=== PATIENT | female | born 1985 | race Caucasian/White ===

== ENCOUNTER 2017-03-27 18:00 | Emergency (ER) | payer BC ==
[2017-03-27 18:09] VITALS: BP 115/79
--- NOTE | 2017-03-27 19:12 | UC ---
Paul Salazar Benjamin, scribed for Jeremias Lou MD on 03/27/17 at 1856 . - HPI Summary HPI Summary: This is a 12-week 31yo female c/o feeling hot and flushed on her face today. Pt noticed the symptoms today around 12:45pm. Pt reports having pins and needles feeling in her body, and fast heart rate as well. Colleagues at work also said that pt felt hot. This is her first and pt came into UC to get things checked out just in case. Pt has an ONGYN appointment next week. Pt denies any vaginal discharge, bleeding, or any pain anywhere. - History of Current Complaint Chief Complaint: UCGeneralIllness Stated Complaint: FLUSHED,HIGH PULSE RATE,12 WEEKS PREG Hx Obtained From: Patient Onset/Duration: Started Hours Ago - today around 12:45pm, Resolved Timing: Intermittent Severity: Mild Current Severity: Mild Location of Pain: None Character: None Aggravating Factors: Nothing Alleviating Factors: Nothing Associated Signs and Symptoms: Positive: Other: - racing heart rate. Negative: Genital Swelling or Blisters, Vaginal Bleeding or Discharge - Assessment Hx Now: Yes - Additional Pertinent History Primary Care Physician: [id number] - Allergies/Home Medications Allergies/Adverse Reactions: Allergies Allergy/AdvReac Type Severity Reaction Status Date / Time No Known Allergies Allergy Verified 03/27/17 18:02 PMH/Surg Hx/FS Hx/Imm Hx Endocrine/Hematology History: Denies: Hx Anticoagulant Therapy, Hx Diabetes, Hx Thyroid Disease Cardiovascular History: Denies: Hx Congestive Heart Failure, Hx Deep Vein Thrombosis, Hx Hypertension , Hx Myocardial Infarction, Hx Pacemaker/ICD Respiratory History: Denies: Hx Asthma, Hx Chronic Obstructive Pulmonary Disease (COPD), Hx Lung Cancer, Hx Pneumonia, Hx Pulmonary Embolism GI History: Denies: Hx Gall Bladder Disease, Hx Gastrointestinal Bleed, Hx Ulcer, Hx Urosepsis History: Denies: Hx Kidney Stones, Hx Renal Disease Neurological History: Reports: Hx Migraine - "every now and then." Denies: Hx Dementia, Hx Seizures, Hx Transient Ischemic Attacks (TIA) Psychiatric History: Denies: Hx Anxiety, Hx Depression, Hx Schizophrenia, Hx Bipolar Disorder - Surgical History Surgery Procedure, Year, and Place: IUI Infectious Disease History: No Infectious Disease History: Denies: Hx Clostridium Difficile, Hx Hepatitis, Hx Human Immunodeficiency Virus (HIV), Hx of Known/Suspected MRSA, Hx Shingles, Hx Tuberculosis, Hx Known/ Suspected VRE, Hx Known/Suspected VRSA, History Other Infectious Disease, Traveled Outside the [place] in Last 30 Days - Family History Known Family History: Positive: Hypertension Negative: Cardiac Disease - Social History Occupation: Employed Full-time Lives: With Family Alcohol Use: None Substance Use Type: Reports: None Smoking Status (MU): Never Smoked Tobacco Review of Systems Constitutional: Chills, Other - hot flushes Skin: Negative Eyes: Negative ENT: Negative Respiratory: Negative Cardiovascular: Negative Gastrointestinal: Negative Genitourinary: Other - 12 week Motor: Negative Neurovascular: Negative Musculoskeletal: Negative - no leg swelling Neurological: Negative Psychological: Negative All Other Systems Reviewed And Are Negative: Yes Physical Exam - Physical Exam Triage Information Reviewed: Yes Vital Signs Reviewed: Yes Appearance: Positive: Well-Appearing, No Pain Distress, Well-Nourished Skin: Positive: Warm, Skin Color Reflects Adequate Perfusion, Dry Head/Face: Positive: Normal Head/Face Inspection Eyes: Positive: EOMI, FREDI ENT: Positive: Normal ENT inspection, Hearing grossly normal Neck: Positive: Supple, Nontender Respiratory/Lung Sounds: Positive: Clear to Auscultation, Breath Sounds Present Cardiovascular: Positive: RRR, Pulses are Symmetrical in both Upper and Lower Extremities Abdomen Description: Positive: Nontender, Soft Bowel Sounds: Positive: Present Musculoskeletal: Positive: Strength/ROM Intact Neurological: Positive: Sensory/Motor Intact, Alert, Oriented to Person Place, Time Psychiatric: Positive: Affect/Mood Appropriate Diagnostics - Laboratory Diagnostic Studies Completed/Ordered: POC Urine - trace blood, otherwise negative urine. Course/Dx - Course Course Of Treatment: Reviewed pts medication and allergy lists. Blood pressure noted. HR AND BP NL IN CLINIC. NO PAIN, NO VAG DISCHARGE, NO ABD PAIN. NAD IN CLINIC. WILL F/U WITH OBGYN/PMD, WILL GET RECHECKED IF WORSE. - Diagnoses Provider Diagnoses: Palpitations, Skin flushed, Early stage of Discharge - Discharge Plan Condition: Stable Disposition: HOME Patient Education Materials: Palpitations (ED) Referrals: Madhavi Chowdhury MD [Primary Care Provider] - Additional Instructions: FOLLOW UP WITH YOUR DOCTOR. GET RECHECKED FOR ANY WORSENING OF YOUR CONDITION OR QUESTIONS OR CONCERNS. The documentation as recorded by the Paul connell Benjamin accurately reflects the service I personally performed and the decisions made by me, Jeremias Lou MD.
== END 2017-03-27 19:00 | disposition home or self-care (01) ==
LOC: UCEAST 18:00
DX: O26.891 Other specified pregnancy related conditions, first trimester (principal); R00.2 Palpitations; R23.2 Flushing; Z3A.12 12 weeks gestation of pregnancy; G43.909 Migraine, unspecified, not intractable, without status migrainosus
CPT/HCPCS: 81003; 99211; G0463

== ENCOUNTER 2017-09-08 20:53 | Emergency (ER) | payer BC ==
[2017-09-08] MEDS ORDERED: Ondansetron INJ* 2 MG/ML VIAL IV ONE ×2 (21:11→21:53)
[2017-09-08] MEDS ORDERED: NS 0.9% 1000 ML* 1,000 ML IV ONE (21:11)
--- NOTE | 2017-09-08 21:11 | ED ---
Abdominal Pain/Female - HPI Summary HPI Summary: 32 female presents to ED with complaints of right lower abdominal and right flank pain that began suddenly around 5 pm today. Patient is 36 weeks . Spoke with her OB research microbiologist who stated she should go to ER to rule out appendicitis. Patient states pain has worsened over the past few hours. Has also had 2 episodes of vomiting. Denies fever. Denies urinary and genitalia complaints. States pain was dull however it sharp. Radiates into right back. Admits to nausea. No PMHx and no other complaints/injuries. Denies vaginal bleeding/discharge. Has never had pain like this in the past. Normal bowel movements. Denies blood. Has been a normal since without complication. - History of Current Complaint Hx Obtained From: Patient Hx Last Menstrual Period: 03/20/16 ?: Yes Onset/Duration: Sudden Onset, Lasting Hours, Still Present, Worse Since Timing: Constant Severity Initially: Moderate Severity Currently: Severe Pain Intensity: 10 Pain Scale Used: 0-10 Numeric Location: Discrete At: RLQ, Flank Radiates: Yes Radiates to: Flank - right Character: Sharp, Dull Aggravating Factor(s): Movement Alleviating Factor(s): Nothing Associated Signs and Symptoms: Positive: Nausea, Vomiting - x2. Negative: Constipation, Blood in Stool, Urinary Symptoms, Decreased Appetite, Vaginal Bleeding, Vaginal Discharge <Argelia Locke - Last Filed: 09/09/17 02:18> <Anibal Carroll - Last Filed: 09/09/17 05:31> - History of Current Complaint Chief Complaint: EDAbdPain Stated Complaint: 36 WEEKS PREG/BACK PAIN Time Seen by Provider: 09/08/17 21:10 Allergies/Adverse Reactions: Allergies Allergy/AdvReac Type Severity Reaction Status Date / Time No Known Allergies Allergy Verified 09/08/17 21:07 PMH/Surg Hx/FS Hx/Imm Hx Endocrine/Hematology History: Denies: Hx Anticoagulant Therapy, Hx Diabetes, Hx Thyroid Disease Cardiovascular History: Denies: Hx Congestive Heart Failure, Hx Deep Vein Thrombosis, Hx Hypertension , Hx Myocardial Infarction, Hx Pacemaker/ICD Respiratory History: Denies: Hx Asthma, Hx Chronic Obstructive Pulmonary Disease (COPD), Hx Lung Cancer, Hx Pneumonia, Hx Pulmonary Embolism GI History: Denies: Hx Gall Bladder Disease, Hx Gastrointestinal Bleed, Hx Ulcer, Hx Urosepsis History: Denies: Hx Kidney Stones, Hx Renal Disease Neurological History: Reports: Hx Migraine - "every now and then." Denies: Hx Dementia, Hx Seizures, Hx Transient Ischemic Attacks (TIA) Psychiatric History: Denies: Hx Anxiety, Hx Depression, Hx Schizophrenia, Hx Bipolar Disorder - Surgical History Surgery Procedure, Year, and Place: IUI - Immunization History Immunizations Up to Date: Yes Infectious Disease History: No Infectious Disease History: Denies: Hx Clostridium Difficile, Hx Hepatitis, Hx Human Immunodeficiency Virus (HIV), Hx of Known/Suspected MRSA, Hx Shingles, Hx Tuberculosis, Hx Known/ Suspected VRE, Hx Known/Suspected VRSA, History Other Infectious Disease, Traveled Outside the [place] in Last 30 Days - Family History Known Family History: Positive: Hypertension Negative: Cardiac Disease - Social History Alcohol Use: None Substance Use Type: Reports: None Smoking Status (MU): Never Smoked Tobacco <Argelia Locke - Last Filed: 09/09/17 02:18> Review of Systems Constitutional: Negative Cardiovascular: Negative Respiratory: Negative Positive: Abdominal Pain, Vomiting Neurological: Negative All Other Systems Reviewed And Are Negative: Yes <Argelia Locke - Last Filed: 09/09/17 02:18> Physical Exam Triage Information Reviewed: Yes Vital Signs On Initial Exam: Initial Vitals Temp Pulse Resp BP Pulse Ox 99.3 F 118 20 145/99 100 09/08/17 21:00 09/08/17 21:00 09/08/17 21:00 09/08/17 21:00 09/08/17 21:00 tachycardia noted, patient upset/anxious/in pain Vital Signs Reviewed: Yes Appearance: Positive: Well-Appearing, Well-Nourished, Pain Distress - moderate to severe Skin: Positive: Warm, Skin Color Reflects Adequate Perfusion, Dry. Negative: Cold, Numb, Cyanosis @, Pale, Erythema @ Head/Face: Positive: Normal Head/Face Inspection Eyes: Positive: Conjunctiva Clear ENT: Positive: Hearing grossly normal, Pharynx normal Neck: Positive: Supple, Nontender Respiratory/Lung Sounds: Positive: Clear to Auscultation, Breath Sounds Present. Negative: Rales, Rhonchi, Wheezes Cardiovascular: Positive: Normal, RRR, Pulses are Symmetrical in both Upper and Lower Extremities. Negative: Murmur, Rub Abdomen Description: Positive: No Organomegaly, Soft, CVA Tenderness (R), Guarding, McBurney's Point Tenderness, Other: - diffuse tenderness, worse at RLQ R flank, exam limited due to . Negative: CVA Tenderness (L), Distended, Peritoneal Signs Bowel Sounds: Positive: Present Musculoskeletal: Positive: Normal, Strength/ROM Intact Neurological: Positive: Normal, Sensory/Motor Intact, Alert, Oriented to Person Place, Time, CN Intact II-III <Argelia Locke - Last Filed: 09/09/17 02:18> Vital Signs On Initial Exam: Initial Vitals Temp Pulse Resp BP Pulse Ox 37.4 C 118 20 145/99 100 09/08/17 21:00 09/08/17 21:00 09/08/17 21:00 09/08/17 21:00 09/08/17 21:00 <Anibal Carroll - Last Filed: 09/09/17 05:31> Diagnostics - Vital Signs Vital Signs Temp Pulse Resp BP Pulse Ox 09/08/17 21:00 99.3 F 118 20 145/99 100 - Laboratory Result Diagrams: 09/08/17 21:53 09/08/17 21:53 Lab Statement: Any lab studies that have been ordered have been reviewed, and results considered in the medical decision making process. - Ultrasound No standard instances Ultrasound Interpretation: No Acute Changes - normal right and left overy with positive doppler blood flow. no acute findings Ultrasound Interpretation Completed By: Radiologist <Argelia Locke - Last Filed: 09/09/17 02:18> - Vital Signs Vital Signs Temp Pulse Resp BP Pulse Ox 09/09/17 03:01 37.1 C 88 16 105/65 98 09/09/17 02:00 88 105/65 97 09/09/17 01:30 90 98/47 97 09/09/17 01:11 78 97 09/09/17 01:09 103/57 09/08/17 23:30 79 119/53 97 09/08/17 23:08 77 97 09/08/17 23:07 118/65 09/08/17 22:30 86 115/77 98 09/08/17 22:17 18 09/08/17 22:00 86 121/79 99 02/20/18 21:53 88 98 09/08/17 21:30 102/60 09/08/17 21:18 136/87 09/08/17 21:00 37.4 C 118 20 145/99 100 - Laboratory Lab Results: Lab Results 09/08/17 09/08/17 09/08/17 Range/Units 21:53 21:53 21:53 WBC 14.8 H (3.5-10.8) 10^3/ul RBC 4.38 (4.0-5.4) 10^6/ul Hgb 13.4 (12.0-16.0) g/dl Hct 40 (35-47) % MCV 91 (80-97) fL MCH 31 (27-31) pg MCHC 34 (31-36) g/dl RDW 14 (10.5-15) % Plt Count 253 (150-450) 10^3/ul MPV 9 (7.4-10.4) um3 Neut % (Auto) 75.7 (38-83) % Lymph % (Auto) 15.8 L (25-47) % Caroline % (Auto) 7.4 (1-9) % Eos % (Auto) 0.8 (0-6) % Baso % (Auto) 0.3 (0-2) % Absolute Neuts (auto) 11.2 H (1.5-7.7) 10^3/ul Absolute Lymphs (auto) 2.3 (1.0-4.8) 10^3/ul Absolute Monos (auto) 1.1 H (0-0.8) 10^3/ul Absolute Eos (auto) 0.1 (0-0.6) 10^3/ul Absolute Basos (auto) 0 (0-0.2) 10^3/ul Absolute Nucleated RBC 0 10^3/ul Nucleated RBC % 0 Sodium 134 (133-145) mmol/L Potassium 3.8 (3.5-5.0) mmol/L Chloride 106 (101-111) mmol/L Carbon Dioxide 20 L (22-32) mmol/L Anion Gap 8 (2-11) mmol/L BUN 8 (6-24) mg/dL Creatinine 0.61 (0.51-0.95) mg/dL Est GFR ( Amer) 144.4 (>60) Est GFR (Non-Af Amer) 112.3 (>60) BUN/Creatinine Ratio 13.1 (8-20) Glucose 84 (70-100) mg/dL Lactic Acid 1.0 (0.5-2.0) mmol/L Calcium 9.5 (8.6-10.3) mg/dL Total Bilirubin 0.20 (0.2-1.0) mg/dL AST 17 (13-39) U/L ALT 12 (7-52) U/L Alkaline Phosphatase 131 H (34-104) U/L C-Reactive Protein 8.47 H (< 5.00) mg/L Total Protein 6.5 (6.4-8.9) g/dL Albumin 3.3 (3.2-5.2) g/dL Globulin 3.2 (2-4) g/dL Albumin/Globulin Ratio 1.0 (1-3) Lipase 26 (11.0-82.0) U/L Urine Color Urine Appearance Urine pH (5-9) Ur Specific [place] (1.010-1.030) Urine Protein (Negative) Urine Ketones (Negative) Urine Blood (Negative) Urine Nitrate (Negative) Urine Bilirubin (Negative) Urine Urobilinogen (Negative) Ur Leukocyte Esterase (Negative) Urine Glucose (Negative) 09/08/17 Range/Units 23:07 WBC (3.5-10.8) 10^3/ul RBC (4.0-5.4) 10^6/ul Hgb (12.0-16.0) g/dl Hct (35-47) % MCV (80-97) fL MCH (27-31) pg MCHC (31-36) g/dl RDW (10.5-15) % Plt Count (150-450) 10^3/ul MPV (7.4-10.4) um3 Neut % (Auto) (38-83) % Lymph % (Auto) (25-47) % Caroline % (Auto) (1-9) % Eos % (Auto) (0-6) % Baso % (Auto) (0-2) % Absolute Neuts (auto) (1.5-7.7) 10^3/ul Absolute Lymphs (auto) (1.0-4.8) 10^3/ul Absolute Monos (auto) (0-0.8) 10^3/ul Absolute Eos (auto) (0-0.6) 10^3/ul Absolute Basos (auto) (0-0.2) 10^3/ul Absolute Nucleated RBC 10^3/ul Nucleated RBC % Sodium (133-145) mmol/L Potassium (3.5-5.0) mmol/L Chloride (101-111) mmol/L Carbon Dioxide (22-32) mmol/L Anion Gap (2-11) mmol/L BUN (6-24) mg/dL Creatinine (0.51-0.95) mg/dL Est GFR ( Amer) (>60) Est GFR (Non-Af Amer) (>60) BUN/Creatinine Ratio (8-20) Glucose (70-100) mg/dL Lactic Acid (0.5-2.0) mmol/L Calcium (8.6-10.3) mg/dL Total Bilirubin (0.2-1.0) mg/dL AST (13-39) U/L ALT (7-52) U/L Alkaline Phosphatase (34-104) U/L C-Reactive Protein (< 5.00) mg/L Total Protein (6.4-8.9) g/dL Albumin (3.2-5.2) g/dL Globulin (2-4) g/dL Albumin/Globulin Ratio (1-3) Lipase (11.0-82.0) U/L Urine Color Yellow Urine Appearance Cloudy Urine pH 6.0 (5-9) Ur Specific [place] 1.011 (1.010-1.030) Urine Protein Negative (Negative) Urine Ketones 1+ H (Negative) Urine Blood Negative (Negative) Urine Nitrate Negative (Negative) Urine Bilirubin Negative (Negative) Urine Urobilinogen Negative (Negative) Ur Leukocyte Esterase Negative (Negative) Urine Glucose Negative (Negative) Result Diagrams: 09/08/17 21:53 09/08/17 21:53 Lab Statement: Any lab studies that have been ordered have been reviewed, and results considered in the medical decision making process. <Anibal Carroll - Last Filed: 09/09/17 05:31> Abdominal Pain Fem Course/Dx - Course Course Of Treatment: given morphine and zofran, along with fluids, had relief. labs obtained and slight elevation of WBC however appeared insignificant. did have elevated CRP at 8. rest of labs normal. pelvic US obtained and negative for any acute ovarian findings. OB nurse evaluated patient and baby for contractions and this did not appear to be labor or contractions in nature, cleared by OB. MRI was obtained to r/o appey versus kidney stone. Urinalysis obtained and unremarkable and without blood. No PMHx and no risk factors. Normal PE otherwise. Normal vitals. Dr Carroll also evalauted patient and agrees. MRI was negative. Appears to be having abdominal pain in . No concern for active labor. Pain susbsided throughout visit and at discharge. Possible gas pain versus position//lianne pickering. No other concerns. Follow up with OB. Aware of worsening signs and symptoms to watch out for. Tylenol and fluids at home. Patient agrees and understands plan. - Diagnoses Differential Diagnosis: Positive: Appendicitis, Constipation, Diverticulitis, Renal Colic, Other - renal calculi - Provider Notifications Discussed Care Of Patient With: Dr Carroll - Critical Care Time Critical Care Time: 30-74 min <Argelia Locke - Last Filed: 09/09/17 02:18> - Course Course Of Treatment: I supervised the PA AND performed a hx and physical exam on this pt. Hx: 36wk preg, R sided abd pain today. Severe. PE: uncomfortable. Diffuse R sided and epigastric pain, gravid abd. On toco monitoring. Plan: Labor ruled out. MRI R/O Appy/stone. MRI neg. Pain relieved. D/C with OB f/u. - Critical Care Time Critical Care Time: 30-74 min - exclusive of separtely billable procedures <Anibal Carroll - Last Filed: 09/09/17 05:31> - Diagnoses Provider Diagnoses: Abdominal pain during intrauterine Discharge <Argelia Locke - Last Filed: 09/09/17 02:18> <Anibal Carroll - Last Filed: 09/09/17 05:31> - Discharge Plan Condition: Stable Disposition: HOME Patient Education Materials: Abdominal Pain in (ED) Referrals: Madhavi Chowdhury MD [Primary Care Provider] - Additional Instructions: Please follow up with PCP and OBGYN. Any new or worsening symptoms please seek medical attention. High fiber diet, increase fluids. Tylenol for discomfort as needed. Addendum entered and electronically signed by Argelia Locke PA 09/09/17 02: 20: ED Addendum Addendum: MRI results: normal liver, gallbladder, spleen, pancreas, adrenal glands and kidneys. no bowel inflammation or obstruction. gravid uterus is noted with the fetus in cephalic presentation no evidence of abruption or previa. no adrenal masses. appendix is noted measuring 6 mm in diameter which is normal.
[2017-09-08] MEDS ORDERED: Morphine INJ* 2 MG/ML 1 ML CARPUJECT IV ONE (21:53)
[2017-09-08 22:10] LABS: ABS Basophils 0 10^3/ul (0-0.2); ABS Eosinophils 0.1 10^3/ul (0-0.6); ABS Lymphocytes 2.3 10^3/ul (1.0-4.8); ABS Monocytes 1.1 10^3/ul (0-0.8); ABS Neutrophils 11.2 10^3/ul (1.5-7.7); ABS Nucleated RBC 0 10^3/ul; Eosinophil % 0.8 % (0-6); Hematocrit 40 % (35-47); Hemoglobin 13.4 g/dl (12.0-16.0); Lymphocyte % 15.8 % (25-47); Mean Corpuscular HGB Conc 34 g/dl (31-36); Mean Corpuscular Hemoglobin 31 pg (27-31); Mean Corpuscular Volume 91 fL (80-97); Mean Platelet Volume 9 um3 (7.4-10.4); Nucleated Red Blood Cells % 0; Platelet Count 253 10^3/ul (150-450); Red Blood Count 4.38 10^6/ul (4.0-5.4); Red Cell Distribution Width 14 % (10.5-15); White Blood Count 14.8 10^3/ul (3.5-10.8)
[2017-09-08 22:20] LABS: EGFR Non-African American 112.3 (>60)
[2017-09-08 23:17] LABS: Urine Appearance Cloudy; Urine Blood Negative (Negative); Urine Color Yellow; Urine Ketones 1+ (Negative); Urine Protein Negative (Negative); Urine Specific Gravity 1.011 (1.010-1.030); Urine Urobilinogen Negative (Negative)
[2017-09-09] MEDS ORDERED: Acetaminophen TAB* 325 MG PO ONE (01:42)
[2017-09-09 02:24] VITALS: BP 105/65
--- NOTE | 2017-09-09 07:42 | RAD ---
INDICATION: Right pelvic pain in a 36 week female COMPARISON: None. TECHNIQUE: Real-time transabdominal ultrasound examination of the ovaries only including grayscale and Doppler color flow imaging. FINDINGS: According to the doctor's requisition only the ovaries were visualized. Ovaries: The right and left ovary measure 4.7 x 3.9 x 4.1 cm and 4.1 x 2.3 x 2.4 cm, respectively. Normal arterial and venous waveforms are identified. Appearance is within normal limits for the patient's age. There is no free fluid in the cul-de-sac. IMPRESSION: Normal transabdominal ultrasound examination of the bilateral ovaries.
--- NOTE | 2017-09-09 09:17 | RAD ---
Indication: 36-week-old with right lower quadrant pain. Image Sequences: Axial T1, T2, T2 fat sat, coronal T1, T2 fat sat, and sagittal T2 weighted images were obtained. Thin section axial images utilizing T1 and T2-weighted images were obtained in the pelvis. Lung bases demonstrate no pleural fluid, nodules or masses. The liver where visualized is grossly unremarkable. Spleen is normal in size. Gallbladder is unremarkable. Pancreas demonstrates no mass or pancreatic duct dilatation. No adrenal lesions are noted. The kidneys demonstrate no hydronephrosis. No evidence of abnormal fluid collections are noted. Appendix is likely normal. There is a gravid uterus. The fetus is in cephalic presentation. IMPRESSION: No definite evidence of appendicitis is noted.
== END 2017-09-09 02:30 | disposition home or self-care (01) ==
LOC: ED 20:53
DX: O26.893 Other specified pregnancy related conditions, third trimester (principal); R10.31 Right lower quadrant pain; Z3A.36 36 weeks gestation of pregnancy
CPT/HCPCS: 36415; 74181; 76856; 80053; 81003; 83605; 83690; 85025; 86140; 87040; 96361; 96365; 96375; 99284; A9270-GY; J2270; J2405

== ENCOUNTER 2017-10-14 07:46 | Inpatient (IN) | payer BC ==
[2017-10-14] MEDS ORDERED: Dinoprostone* 10 MG VAG.SUPP VAGINAL ONE (08:42)
--- NOTE | 2017-10-14 09:06 | PN ---
L&D Outpatient: Visit - Reproductive Information Estimated Due Date: 10/07/17 Gestational Age: 41 Weeks and 0 Days : 1 - Reason for Visit Visit Reason: cervical ripening - Antepartal Records Antepartal Record: Reviewed, Complicated by: - Sequential Screen positive for Down's, but NIPT normal - Patient History Patient History Significant: Yes Patient History Significant For: IVF L&D Outpatient: ROS - Review of Systems Constitutional: Comfortable CV Complaint: No Respiratory: Shortness of Breath: No Gastrointestinal: No Nausea/Vomiting Genitourinary: No Leaking Fluid Musculoskeletal: No Complaint Movement: Normal L&D Outpatient: Exam Vitals - Most Recent: 118/81 99.0-95-18 - Cervical Exam Cervical Exam: posterior, not reached, thick, vtx high - Abdominal Exam Abdomen Exam: Fundal Height Consistent with Dates - Membranes Membrane Status: Intact - Ultrasound/Biophysical Profile Ultrasound Status: Not Done L&D Outpatient: EFM - External Monitor Findings Baseline Heart Rate: 135 External Monitor Findings: Accelerations Present, Variability Moderate External Monitor Findings Comment: category 1 L&D Outpatient: Asses/Plan Assessment: 41 wk , unripe cervix, for ripening Cervidil placed 1403 Plan: will monitor according to protocol Reevaluate in 12 hrs or if s/s labor
--- NOTE | 2017-10-14 17:13 | PN ---
Progress Note - Progress Note Date of Service: 10/14/17 Note: pt with mild irreg contractions, then woke up from nap approx 1500 with stronger contractions. Uncomfortable but able to talk through contractions FHTs: remain category 1, with mod variability, accels, baseline 125 Cervix: still very posterior, unable to reach, but softer. Pt difficult to examine due to discomfort Offered to remove Cervidil but pt OK with leaving in. May use tub if desired. Will continue to observe.
--- NOTE | 2017-10-14 19:24 | HP ---
General Information - General Information Maternal Age: 32 Grav: 1 Para: 0 SAB: 0 IEA: 0 Estimated Due Date: 10/07/17 Gestational Age in Weeks and Days: 41 Weeks and 0 Days Maternal Blood Type and Rh: A Positive - Results this Serology/RPR Result: Non-Reactive Rubella Result: Immune HBsAg Result: Negative HIV Result: Negative GBS Culture Result: Positive Past Medical History Pertinent Past Medical History: See Records Past Medical History Comment: PCOS Pertinent Past Surgical History: See Records Pertinent Family History: See Records Family History Comment: F and M with diabetes - Antepartal Records Antepartal Records: Reviewed, Complicated by: - Sequential Screen positive for Downs, but NIPT normal Review of Systems Constitutional: Uncomfortable CV Complaint: No Respiratory: Shortness of Breath: No Gastrointestinal: No Nausea/Vomiting Genitourinary: Leaking Fluid Musculoskeletal: Contractions Neurological: No Headache Movement: Normal Exam Allergies/Adverse Reactions: Allergies No Known Allergies Allergy (Verified 09/08/17 21:07) in [facility] Lab Values - Entire Visit: Laboratory Tests 10/14/17 18:39 Vag Amniotic Fld Detect Positive - Measurements Height: 5 ft 4 in Weight: 207 lb Weight in lbs: 207 Body Mass Index (BMI): 35.5 - Exam Abdomen: No Upper Quadrant Pain Breast: - - soft, no masses CVA: No CVA Tenderness Extremities: Edema Heart: Normal Rhythm/Heart Sounds HEENT: No Significant Findings Lungs: Clear Bilaterally Thyroid: No Thyromegaly - Cervical Exam not done on admission - Abdominal Exam Abdomen Exam Comment: EFW 8.5 lbs - Membranes Membrane Status: SROM - ROMPlus positive - Ultrasound/Biophysical Profile Ultrasound Status: Not Done EFM Findings - External Monitor Findings External Monitor Findings Comment: see [facility] Contractions: Moderate Assessment/Plan - Reason for Visit Reason for Visit: Cervidil placed at 09am, removed at 1830 when pt became uncomfortable. States had "pop" started leaking fluid at 1825. - Obstetrical Risk Factors Obstetrical Risk Factors: GBS Positive, Post-Dates, Assisted Reproduction - Plan Plan: Active Labor Plan Comment: will admit, begin PCN prophylaxis for +GBS - Date/Time of Admission Date of Admission: 10/14/17 Time of Admission: 19:00
[2017-10-14] MEDS ORDERED: Penicillin G Potassium IV* 5,000,000 UNITS in NS 0.9% 100 ML* 100 ML IVPB ONE (19:31)
[2017-10-14 20:12] LABS: ABS Basophils 0 10^3/ul (0-0.2); ABS Eosinophils 0.2 10^3/ul (0-0.6); ABS Lymphocytes 2.1 10^3/ul (1.0-4.8); ABS Monocytes 0.9 10^3/ul (0-0.8); ABS Neutrophils 11.7 10^3/ul (1.5-7.7); ABS Nucleated RBC 0 10^3/ul; Eosinophil % 1.3 % (0-6); Hematocrit 40 % (35-47); Hemoglobin 13.5 g/dl (12.0-16.0); Lymphocyte % 13.8 % (25-47); Mean Corpuscular HGB Conc 34 g/dl (31-36); Mean Corpuscular Hemoglobin 31 pg (27-31); Mean Corpuscular Volume 91 fL (80-97); Mean Platelet Volume 8.9 um3 (7.4-10.4); Nucleated Red Blood Cells % 0; Platelet Count 236 10^3/ul (150-450); Red Blood Count 4.42 10^6/ul (4.0-5.4); Red Cell Distribution Width 15 % (10.5-15); White Blood Count 14.9 10^3/ul (3.5-10.8)
--- NOTE | 2017-10-14 20:44 | PN ---
Progress Note - Progress Note Date of Service: 10/14/17 Note: now out of tub, very uncomfortable, contractions every 2-3 minute, with not much break. Requesting epidural. Dr. Wolff coming.
[2017-10-14] MEDS ORDERED: OBEPIDURAL* 250 ML EPIDURAL ONE (20:46)
--- NOTE | 2017-10-14 21:04 | PN ---
Progress Note - Progress Note Date of Service: 10/14/17 Note: vaginal exam attempted prior to epidural, pt unable to tolerate. Will attempt when more comfortable.
[2017-10-14] MEDS ORDERED: Phenylephrine IV* 40 MCG/ML 10 ML SYRINGE IV PUSH PRN ×2 (21:30)
[2017-10-14] MEDS ORDERED: Sodium Citrate/Citric Acid* 15 ML UDC ONE (21:44)
[2017-10-14] MEDS: Sodium Citrate/Citric Acid* 15 ML UDC PO PRN (21:45)
[2017-10-14] MEDS ORDERED: OBEPIDURAL* 250 ML EPIDURAL SCH (22:00)
--- NOTE | 2017-10-14 22:47 | PN ---
Progress Note - Progress Note Date of Service: 10/14/17 Note: starting to get comfortable after epidural FHT: baseline 140, mod variability, accels present Contractions every 2 minutes Cervix: 1cm, 80%, vtx -2
[2017-10-15] MEDS: Penicillin G Potassium IV* 2,500,000 UNITS in NS 0.9% 100 ML* 100 ML IVPB SCH ×5 (00:03→16:13)
[2017-10-15] MEDS ORDERED: Famotidine IV* 10 MG/ML 2 ML (20 mg) IV SLOW PU ONE (00:19)
[2017-10-15] MEDS ORDERED: Famotidine IV* 10 MG/ML 2 ML (20 mg) ONE (00:20)
--- NOTE | 2017-10-15 06:51 | PN ---
Progress Note - Progress Note Date of Service: 10/15/17 - Labor check Note: BP 108/75 FHT 125 baseline. Contractions every 4-5. Has been sleeping on and off. Cervix: 8cm/100% Vtx -1. bulging bag. AROM, clear fluid at 0630
[2017-10-15] MEDS ORDERED: ceFOXitin 2 GM IVPREMIX* 50 ML IVPB ONE (16:40)
[2017-10-15] MEDS: Sodium Citrate/Citric Acid* 15 ML UDC PO PRN (16:53)
[2017-10-15] MEDS ORDERED: ceFOXitin(*) 2 GM in NS 0.9% 50 ML* 50 ML IVPB ONE (17:00)
[2017-10-15] MEDS ORDERED: fentaNYL* 50 MCG/ML 2 ML VIAL (100 MCG VIAL) ONE (17:08)
[2017-10-15] MEDS ORDERED: Carboprost Tromethamine* 250 MCG INJ ONE (17:39)
[2017-10-15] MEDS ORDERED: Morphine PF AMP (0.5MG/ML)* 5 MG/10 ML AMP ONE (18:04)
[2017-10-15] MEDS ORDERED: Ketorolac INJ* 30 MG/ML 1 ML VIAL ONE (18:33)
[2017-10-15] MEDS ORDERED: Naloxone* 0.4 MG/ML 1 ML VIAL IV PRN ×2 (20:40→20:41)
[2017-10-15] MEDS ORDERED: Acetaminophen TAB* 325 MG PO PRN ×2 (20:40→20:41)
[2017-10-15] MEDS ORDERED: oxyCODONE/Acetamin 5/325 MG* TAB PO PRN (20:40)
[2017-10-15] MEDS ORDERED: HYDROmorphone INJ* 1 MG/ML CARPUJECT SYRINGE IV PRN (20:40)
[2017-10-15] MEDS ORDERED: fentaNYL* 50 MCG/ML 2 ML VIAL (100 MCG VIAL) IV PRN (20:40)
[2017-10-15] MEDS ORDERED: diPHENhydraMINE IV* 50 MG/ML 1 ml VIAL (BENADRYL) IV PRN (20:40)
[2017-10-15] MEDS ORDERED: Ondansetron INJ* 2 MG/ML VIAL IV PRN ×2 (20:40→20:41)
[2017-10-15] MEDS ORDERED: Scopolamine 1.5 mg* PATCH TRANSDERM PRN (20:41)
[2017-10-15] MEDS ORDERED: oxyCODONE TAB* 5 MG TAB PO PRN (20:41)
[2017-10-15] MEDS: Ketorolac INJ* 30 MG/ML 1 ML VIAL IV PRN (21:26)
[2017-10-15] MEDS ORDERED: Glycerin ADULT SUPP PR PRN (21:39)
[2017-10-15] MEDS ORDERED: Dibucaine 1% 28.35 GM TUBE PR PRN (21:39)
[2017-10-15] MEDS ORDERED: Witch Hazel PAD* JAR TOPICAL PRN (21:39)
[2017-10-15] MEDS ORDERED: Gentamicin ADULT per pharmacy 1 NOTE MISC FOLLOW UP PRN (22:18)
[2017-10-15] MEDS: Clindamycin 900 MG IVPREMIX(* 900 MG/50 ML SDV IV SCH (23:29)
[2017-10-15] MEDS ORDERED: Gentamicin ADULT (*) 140 MG in NS 0.9% 100 ML* 100 ML IVPB ONE (23:45)
[2017-10-16] MEDS: diPHENhydraMINE IV* 50 MG/ML 1 ml VIAL (BENADRYL) IV PRN ×2 (01:16→08:51)
[2017-10-16] MEDS: HYDROcodone/ACETAMIN 5-325 MG* 1 TAB PO PRN ×4 (01:19→20:55)
[2017-10-16] MEDS ORDERED: NS 0.9% IVPB ONE (03:30)
[2017-10-16] MEDS ORDERED: GENTAMICIN ADULT IVPB ONE (03:30)
[2017-10-16] MEDS: Ketorolac INJ* 30 MG/ML 1 ML VIAL IV PRN ×3 (03:32→15:37)
[2017-10-16] MEDS: Clindamycin 900 MG IVPREMIX(* 900 MG/50 ML SDV IV SCH ×3 (06:11→22:10)
[2017-10-16 06:58] LABS: ABS Basophils 0.1 10^3/ul (0-0.2); ABS Eosinophils 0.1 10^3/ul (0-0.6); ABS Lymphocytes 2.8 10^3/ul (1.0-4.8); ABS Monocytes 0.9 10^3/ul (0-0.8); ABS Neutrophils 18.4 10^3/ul (1.5-7.7); ABS Nucleated RBC 0 10^3/ul; Eosinophil % 0.5 % (0-6); Hematocrit 34 % (35-47); Hemoglobin 11.4 g/dl (12.0-16.0); Lymphocyte % 12.4 % (25-47); Mean Corpuscular HGB Conc 34 g/dl (31-36); Mean Corpuscular Hemoglobin 31 pg (27-31); Mean Corpuscular Volume 92 fL (80-97); Mean Platelet Volume 8.4 um3 (7.4-10.4); Nucleated Red Blood Cells % 0; Platelet Count 185 10^3/ul (150-450); Red Blood Count 3.69 10^6/ul (4.0-5.4); Red Cell Distribution Width 16 % (10.5-15); White Blood Count 22.3 10^3/ul (3.5-10.8)
[2017-10-16 07:19] LABS: EGFR Non-African American 87.1 (>60)
[2017-10-16] MEDS: Simethicone TAB* 80 MG TAB.CHEW PO SCH ×4 (08:52→20:31)
[2017-10-16] MEDS: Docusate CAP* 100 MG PO SCH ×3 (08:52→20:30)
[2017-10-16] MEDS ORDERED: Ferrous Gluconate TAB* 324 MG TAB PO SCH (09:00)
[2017-10-16] MEDS ORDERED: oxyCODONE/Acetamin 5/325 MG* TAB PO PRN ×2 (10:30)
[2017-10-16] MEDS ORDERED: Acetaminophen TAB* 325 MG PO PRN (10:30)
[2017-10-16] MEDS ORDERED: Zolpidem TAB* 5 MG PO PRN (10:30)
[2017-10-16] MEDS ORDERED: Gentamicin RANDOM Level 1 NOTE MISC FOLLOW UP ONE (12:00)
[2017-10-16] MEDS ORDERED: Gentamicin Trough Level 1 NOTE MISC FOLLOW UP ONE (21:00)
[2017-10-16] MEDS: Ibuprofen TAB* 600 MG PO PRN (22:10)
[2017-10-17] MEDS ORDERED: Gentamicin ADULT (*) 350 MG in NS 0.9% 100 ML* 100 ML IVPB SCH (04:00)
[2017-10-17] MEDS: Ibuprofen TAB* 600 MG PO PRN ×3 (04:50→16:56)
[2017-10-17] MEDS: HYDROcodone/ACETAMIN 5-325 MG* 1 TAB PO PRN ×4 (04:51→21:14)
[2017-10-17] MEDS: Clindamycin 900 MG IVPREMIX(* 900 MG/50 ML SDV IV SCH ×2 (06:04→14:18)
[2017-10-17 07:34] LABS: ABS Basophils 0.1 10^3/ul (0-0.2); ABS Eosinophils 0.3 10^3/ul (0-0.6); ABS Monocytes 0.9 10^3/ul (0-0.8); ABS Neutrophils 13.3 10^3/ul (1.5-7.7); ABS Nucleated RBC 0 10^3/ul; Eosinophil % 1.8 % (0-6); Hematocrit 31 % (35-47); Hemoglobin 10.6 g/dl (12.0-16.0); Lymphocyte % 12.3 % (25-47); Mean Corpuscular HGB Conc 34 g/dl (31-36); Mean Corpuscular Hemoglobin 32 pg (27-31); Mean Corpuscular Volume 92 fL (80-97); Mean Platelet Volume 8.2 um3 (7.4-10.4); Nucleated Red Blood Cells % 0; Platelet Count 196 10^3/ul (150-450); Red Blood Count 3.37 10^6/ul (4.0-5.4); Red Cell Distribution Width 16 % (10.5-15); White Blood Count 16.6 10^3/ul (3.5-10.8)
[2017-10-17 07:50] LABS: EGFR Non-African American 88.5 (>60)
[2017-10-17] MEDS: Simethicone TAB* 80 MG TAB.CHEW PO SCH ×4 (08:51→21:14)
[2017-10-17] MEDS: Docusate CAP* 100 MG PO SCH ×3 (08:51→21:14)
--- NOTE | 2017-10-17 12:26 | OP ---
OPERATIVE REPORT: DATE OF OPERATION: 10/15/17 DATE OF : 81 SURGEON: Martin Weinstein MD RUBBISH COLLECTOR: Dr. Sosa. ANESTHESIA: Epidural. PRE-OP DIAGNOSES: at 41 weeks with arrest of descent and labor. POST-OP DIAGNOSES: at 41 weeks with arrest of descent and labor. OPERATIVE PROCEDURE: Primary low transverse section. ESTIMATED BLOOD LOSS: 700 cc. SPECIMEN SENT TO PATHOLOGY: Cord bloods. IV FLUIDS: She received 1 L of IV crystalloid fluid. URINE OUTPUT: Clear. FINDINGS: Fetus in a deep transverse arrest. The head was removed cephalad in Trendelenburg positio n, which once the head reached the lower uterine segment, it changed to a right transverse back down position of the fetus. I then converted it into a breech presentation via a maneuver and was able to grab the feet and the baby was delivered via a breech extraction over clear fluid. The s were 9 and 9, the weight was 6 pounds 15 ounces, the placenta was grossly intact with a 3- vessel c ord noted and uterus, adnexa, bowel and bladder were within normal limits. DESCRIPTION OF PROCEDURE: The patient was taken to operating room where she was identified. She was placed on the operating table where an epidural anesthetic was obtained without difficulty. She was then placed in the supine position with a leftward tilt, prepped and draped in a normal sterile [facility] ion. A Pfannenstiel skin incision was then made with a knife and carried through the underlying laye r of fascia. The fascia was nicked in the midline and extended laterally with curved Davis scissors. The fascia was then grasped superiorly and inferiorly with Selam clamps and dissected off sharply f rom the rectus muscle. The rectus muscle was then in the midline bluntly. The peritoneum was identified, grasped with pickups and entered sharply with Metzenbaum scissors. The bladder blade was inserted into the patient's abdomen. A bladder flap was created using Metzenbaum scissors over w hich the bladder blade was then reinserted. A low transverse uterine incision was then made with a k nife and extended laterally with bandage scissors and the amniotic fluid was noted to be clear. At t his point, I introduced the hand and noticed that the baby was in a deep transverse arrest. Bed was then placed in a deep Trendelenburg position to help with disengagement of the head. This was done atraumatically; however, when the head reached the lower uterine segment, the feet was turned in to a transverse. I immediately performed a maneuver, the baby was turned into a breech presen tation. The feet was grasped and the was delivered as a breech extraction. The cord was clam ped and cut. The was handed off to waiting java enterprise architect. Cord bloods were obtained. The [facility]a was then removed manually. The uterus was then exteriorized of all clot and debris using moist laparotomy sponges. The uterine incision was then closed using 3-0 Polysorb suture in a running loc ked fashion with a second imbricating layer of 0 Polysorb suture with good hemostasis noted. The tejon sammie was then returned to the patient's abdomen. The gutters were then cleared of all clot and debris using moist laparotomy sponges. All the sponges were then removed from the patient's abdomen. The peritoneum was then closed using 3-0 Polysorb suture in a running fashion. The fascia was closed usi ng 0 Polysorb suture in a running fashion, the skin was closed with 4-0 Monocryl subcuticular stitch. The patient tolerated the procedure well. Sponge, lap, and needle counts were correct x2. She was then transferred to recovery room area in stable condition. [id number] #: [id number]
[2017-10-18] MEDS: Ibuprofen TAB* 600 MG PO PRN ×3 (02:19→15:30)
[2017-10-18] MEDS: HYDROcodone/ACETAMIN 5-325 MG* 1 TAB PO PRN ×3 (02:21→12:36)
[2017-10-18] MEDS: Simethicone TAB* 80 MG TAB.CHEW PO SCH ×2 (08:26→12:36)
[2017-10-18] MEDS: Docusate CAP* 100 MG PO SCH ×2 (08:26→15:30)
[2017-10-18 13:41] VITALS: BP 101/55
[2017-10-18] MEDS ORDERED: Scopolamine PATCH Remove* 1 NOTE MISC PATCH OFF ONE (20:42)
[2017-10-19] MEDS ORDERED: Gentamicin RANDOM Level 1 NOTE MISC FOLLOW UP ONE (16:00)
== END 2017-10-18 16:00 | disposition home or self-care (01) | DRG 540 ==
LOC: MCHOBOUT 07:46 → MCHOB 19:08
PROVIDERS: ADMIT Midwife; ATTEND Obstetrics & Gynecology
PROC: 10907ZC Drainage of Amniotic Fluid, Therapeutic from Products of Conception, Via Natural or Artificial Opening (ICD-10-PCS; 2017-10-15)
PROC: 3E033VJ Introduction of Other Hormone into Peripheral Vein, Percutaneous Approach (ICD-10-PCS; 2017-10-15)
PROC: 10D00Z1 Extraction of Products of Conception, Low, Open Approach (ICD-10-PCS; principal; 2017-10-15 17:26)
DX: O32.4XX0 Maternal care for high head at term, not applicable or unspecified (principal); O62.1 Secondary uterine inertia; O48.0 Post-term pregnancy; O99.824 Streptococcus B carrier state complicating childbirth; O32.2XX0 Maternal care for transverse and oblique lie, not applicable or unspecified; Z3A.41 41 weeks gestation of pregnancy; Z37.0 Single live birth
CPT/HCPCS: 36415; 59200; 80048; 80170; 84112; 85025; 86850; 86900; 86901; A9270-GY; J0694; J1200; J1580; J1885; J2540; J3010

== ENCOUNTER 2021-12-13 17:33 | Inpatient (IN) ==
[2021-12-13] MEDS ORDERED: Buffered Lidocaine 1% SYRIN 1 ml INTRADERM ONE (17:44)
[2021-12-13] MEDS ORDERED: Lactated Ringers 1000 ml BAG 1,000 ML IV ONE (17:44)
[2021-12-13] MEDS ORDERED: ceFOXitin 2 GM IVPREMIX 2 GM/50 ML BAG IVPB ONE (17:44)
[2021-12-13] MEDS ORDERED: Lactated Ringers 1000 ml BAG 1,000 ML IV SCH ×2 (18:00→21:00)
[2021-12-13] MEDS ORDERED: Sodium Citrate/Citric Acid LIQ 15 ML UDC ONE (18:05)
[2021-12-13 18:08] LABS: Urine Appearance Cloudy; Urine Bilirubin Negative (Negative); Urine Blood 2+ (Negative); Urine Color Yellow; Urine Glucose Negative (Negative); Urine Ketones Negative (Negative); Urine Nitrite Negative (Negative); Urine Protein Negative (Negative); Urine Specific Gravity 1.008 (1.002-1.030); Urine Urobilinogen Negative (Negative)
[2021-12-13 18:11] LABS: Urine Bacteria Absent (Absent); Urine Red Blood Cell Trace(0-2/hpf) (Absent); Urine Squamous Epithelial Cell Present (Absent); Urine White Blood Cell 2+(11-20/hpf) (Absent)
[2021-12-13 18:32] LABS: Urine Benzodiazepine Screen None Detected (None Detect); Urine Cannabinoids Screen None Detected (None Detect); Urine Opiates Screen None Detected (None Detect)
[2021-12-13 18:33] LABS: ABS Basophils 0.1 10^3/ul (0-0.2); ABS Eosinophils 0.1 10^3/ul (0-0.6); ABS Monocytes 0.8 10^3/ul (0-0.8); ABS Neutrophils 11.6 10^3/ul (1.5-7.7); Eosinophil % 0.4 %; Hematocrit 37 % (35-47); Hemoglobin 11.9 g/dL (12.0-16.0); Lymphocyte % 13.8 %; Mean Corpuscular HGB Conc 32 g/dL (31-36); Mean Corpuscular Hemoglobin 27 pg (27-31); Mean Corpuscular Volume 83 fL (80-97); Platelet Count 238 10^3/uL (150-450); Red Blood Count 4.46 10^6 /uL (3.70-4.87); Red Cell Distribution Width 17 % (10-15); White Blood Count 14.5 10^3/uL (3.5-10.8)
[2021-12-13] MEDS ORDERED: Morphine PF AMP (0.5MG/ML) 5 MG/10 ML AMP ONE (18:40)
[2021-12-13] MEDS ORDERED: fentaNYL 100 mcg/2 ml 50 MCG/ML VIAL ONE (18:40)
[2021-12-13] MEDS ORDERED: Naloxone 0.4 mg VIAL 0.4 mg/ml 1 ml VIAL IV PRN ×2 (19:00→20:13)
[2021-12-13] MEDS ORDERED: Ondansetron 4 mg VIAL 2 MG/ML 2 ml VIAL IV PRN (19:00)
[2021-12-13] MEDS ORDERED: Metoclopramide 5 MG/ML VIAL (10 mg) IV PRN (19:00)
[2021-12-13] MEDS ORDERED: Ondansetron 4 mg VIAL 2 MG/ML 2 ml VIAL ONE (19:04)
[2021-12-13] MEDS ORDERED: Phenylephrine IV 10 MG/ML 1 ml VIAL ONE (19:12)
[2021-12-13] MEDS ORDERED: Oxytocin 10 UNITS/ML 1 ML VIAL ONE ×3 (19:19→19:32)
[2021-12-13] MEDS ORDERED: Phenylephrine 40 mcg/mL 10mL (400mcg) SYRINGE ONE (19:31)
[2021-12-13] MEDS ORDERED: Metoclopramide 5 MG/ML VIAL (10 mg) ONE (19:44)
[2021-12-13] MEDS ORDERED: Naloxone 4 mg VIAL (10 ml) 2 MG in NS 0.9% 250 ml 250 ML IV PRN (20:10)
[2021-12-13] MEDS ORDERED: fentaNYL 100 mcg/2 ml 50 MCG/ML VIAL IV PRN (20:13)
[2021-12-13] MEDS ORDERED: Witch Hazel PAD JAR TOPICAL PRN (20:27)
[2021-12-13] MEDS ORDERED: Dibucaine 1% OINT 28.35 GM TUBE PR PRN (20:27)
[2021-12-13] MEDS ORDERED: Glycerin ADULT 2.4 gm SUPP PR PRN (20:27)
[2021-12-13] MEDS ORDERED: Oxytocin in LR 20 UNITS/1,000 ML BAG IVPB SCH (21:00)
[2021-12-13] MEDS: HYDROcodone/ACETAMIN 5/325 mg TAB PO PRN (23:49)
[2021-12-14 06:17] LABS: ABS Eosinophils 0.1 10^3/ul (0-0.6); ABS Lymphocytes 2.5 10^3/ul (1.0-4.8); ABS Monocytes 0.9 10^3/ul (0-0.8); ABS Neutrophils 10.7 10^3/ul (1.5-7.7); Eosinophil % 0.9 %; Hematocrit 32 % (35-47); Hemoglobin 10.5 g/dL (12.0-16.0); Lymphocyte % 17.7 %; Mean Corpuscular HGB Conc 32 g/dL (31-36); Mean Corpuscular Hemoglobin 27 pg (27-31); Mean Corpuscular Volume 83 fL (80-97); Mean Platelet Volume 8.6 fL (7.4-10.4); Platelet Count 176 10^3/uL (150-450); Red Blood Count 3.88 10^6 /uL (3.70-4.87); Red Cell Distribution Width 17 % (10-15); White Blood Count 14.3 10^3/uL (3.5-10.8)
[2021-12-14] MEDS ORDERED: Phenylephrine IV 10 MG/ML 1 ml VIAL ONE (07:00)
[2021-12-14] MEDS ORDERED: Phenylephrine 40 mcg/mL 10mL (400mcg) SYRINGE ONE (07:01)
[2021-12-14] MEDS: HYDROcodone/ACETAMIN 5/325 mg TAB PO PRN ×4 (08:52→21:42)
[2021-12-14] MEDS ORDERED: Lactated Ringers 1000 ml BAG 1,000 ML IV ONE (11:50)
[2021-12-14] MEDS ORDERED: Ondansetron 4 mg VIAL 2 MG/ML 2 ml VIAL IV PRN (22:30)
[2021-12-14] MEDS: HYDROmorphone 0.5 MG/0.5 ML SYRINGE IV SLOW PU PRN (22:37)
[2021-12-14] MEDS ORDERED: HYDROmorphone 0.5 MG/0.5 ML SYRINGE IV SLOW PU ONE (23:03)
[2021-12-14] MEDS ORDERED: Naloxone 0.4 mg VIAL 0.4 mg/ml 1 ml VIAL ONE (23:33)
[2021-12-15] MEDS: HYDROcodone/ACETAMIN 5/325 mg TAB PO PRN ×6 (02:16→23:43)
[2021-12-16] MEDS: HYDROcodone/ACETAMIN 5/325 mg TAB PO PRN ×2 (02:50→12:18)
[2021-12-16] MEDS: HYDROmorphone 0.5 MG/0.5 ML SYRINGE IV SLOW PU PRN (07:43)
[2021-12-16 09:33] VITALS: BP 118/65
== END 2021-12-16 15:15 | disposition home or self-care (01) | DRG 540 ==
LOC: MCHOBOUT 17:33 → MCHOB 17:50
PROVIDERS: ADMIT Obstetrics & Gynecology; ATTEND Obstetrics & Gynecology